=== PATIENT | female | born 1955 | race Caucasian/White ===

== ENCOUNTER 2016-12-25 23:07 | Emergency (ER) | payer OTHER ==
[~2016-12-25] VITALS: Ht 157.5 cm; Wt 90.7 kg
[~2016-12-25 23:07] MED LIST: BENZTROPINE MES1 MG PO; BUSPIRONE HCL10 MG PO; CEFTIN 250 MG250 MG PO; COUMADIN 5 MG TA5 M1 PO; ENOXAPARIN80 MG/0.1 SUBQ; HYDROXYZINE HCL25 M1 PO; HYDROXYZINE HCL25 M2 PO; IBUPROFEN 800800 MG PO; INVEGA3 MG PO; INVEGA6 MG PO; LAMICTAL100 MG PO; LATUDA20 MG PO; LEVOTHYROXIN0.137 M1 PO; NORCO 5-325 TA1 EACH PO; SEROQUEL PO; SERTRALINE HCL50 MG PO; TRAZODONE HCL50 MG PO; TYLENOL325 MG PO; WELLBUTRIN SR150 MG PO; WELLBUTRIN XL150 MG PO
[2016-12-26 00:27] LABS: HEMATOCRIT 37.3 % (37.0-47.0); HEMOGLOBIN 12.8 gm/dL (12.0-15.0); MCH 32.6 pg (26.0-34.0); MCHC 34.4 g/dL (28.0-37.0); MCV 94.6 fL (80.0-100.0); RBC 3.94 mil/uL (4.20-5.00); WBC 7.6 thou/uL (4.0-11.0)
[2016-12-26 00:35] LABS: URINE BILIRUBIN NEGATIVE (Negative); URINE BLOOD NEGATIVE (Negative); URINE COLOR YELLOW; URINE GLUCOSE-RANDOM* NEGATIVE (Negative); URINE KETONES NEGATIVE (Negative); URINE LEUKOCYTES-REFLEX NEGATIVE (Negative); URINE PROTEIN (DIPSTICK) NEGATIVE (Negative); URINE SPECIFIC GRAVITY <= 1.005 (1.003-1.035); URINE UROBILINOGEN 0.2 E.U./dl (0.2-1.0)
[2016-12-26 00:38] LABS: ANION GAP 11 mmol/L (7-16); BUN 17 mg/dL (7-18); CHLORIDE 102 mmol/L (98-107); CO2 26 mmol/L (21-32); CREATININE 0.8 mg/dL (0.6-1.0); GLUCOSE 88 mg/dL (74-106); POTASSIUM 3.3 mmol/L (3.5-5.1); SODIUM 139 mmol/L (136-145)
[2016-12-26] MEDS ORDERED: LEVOTHYROXIN0.112 M1 PO (00:40)
[2016-12-26] MEDS ORDERED: SEROQUEL 50 MG50 MG PO (00:41)
[2016-12-26 00:42] LABS: SALICYLATE 6.4 mg/dL (2.8-20.0)
[2016-12-26 00:42] LABS: AMP/METHAMP Negative (Negative); BARBITURATES Negative (Negative); BENZODIAZEPINES Negative (Negative); COCAINE Negative (Negative); METHADONE Negative (Negative); OPIATES Negative (Negative); PCP Negative (Negative); THC Negative (Negative)
[2016-12-26 00:44] LABS: ACETAMINOPHEN < 2 ug/mL (10-30)
[2016-12-26] MEDS ORDERED: HYDROXYZINE HCL25 M2 PO (00:44)
[2016-12-28 21:07] LABS: TRICYCLIC (TCA) CONFIRMATION Negative ng/mL (Cutoff=100)
== END 2016-12-26 03:18 ==
LOC: ER 23:07
PROVIDERS: Emergency Medicine
DX: R45.851 Suicidal ideations (principal); R94.6 Abnormal results of thyroid function studies; E03.9 Hypothyroidism, unspecified; F31.9 Bipolar disorder, unspecified; F17.210 Nicotine dependence, cigarettes, uncomplicated; F10.99 Alcohol use, unspecified with unspecified alcohol-induced disorder; Z98.890 Other specified postprocedural states

== ENCOUNTER 2017-01-16 19:43 | Emergency (ER) | payer OTHER | END 2017-01-16 23:56 | disposition home or self-care (01) | LOC: ER 19:43 | DX: R60.0 Localized edema (principal); F31.9 Bipolar disorder, unspecified; G89.29 Other chronic pain; M25.551 Pain in right hip; E87.6 Hypokalemia; R07.89 Other chest pain; E03.9 Hypothyroidism, unspecified; F17.210 Nicotine dependence, cigarettes, uncomplicated; F10.99 Alcohol use, unspecified with unspecified alcohol-induced disorder; Z98.890 Other specified postprocedural states; Z90.89 Acquired absence of other organs ==

== ENCOUNTER 2017-01-20 10:27 | Emergency (ER) | payer OTHER ==
[~2017-01-20] VITALS: Ht 157.5 cm; Wt 92.1 kg
--- NOTE | ~2017-01-20 | EKG ---
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
[~2017-01-20 10:27] MED LIST changes: +DEPAKOTE 250MG250 M1; +LEVOTHYROXIN0.112 M1 PO; +NAPROSYN500 MG PO; +SEROQUEL 50 MG50 MG PO; +TRAMADOL 50 MG50 MG PO
[2017-01-20 11:35] LABS: ABSOLUTE NEUTROPHILS 3.5 thou/uL (1.4-8.2); BASOPHILS 0.8 % (0.0-2.0); HEMATOCRIT 33.2 % (37.0-47.0); HEMOGLOBIN 11.5 gm/dL (12.0-15.0); LYMPHOCYTES 22.3 % (24.0-44.0); MANUAL DIFF NO; MCH 32.5 pg (26.0-34.0); MCHC 34.5 g/dL (28.0-37.0); MCV 94.1 fL (80.0-100.0); MONOCYTES 11.1 % (1.0-8.0); PLATELET COUNT 248 thou/uL (150-400); POLYS 52.8 % (36.0-66.0); RBC 3.53 mil/uL (4.20-5.00); RDW 13.1 % (10.5-14.5); WBC 6.5 thou/uL (4.0-11.0)
[2017-01-20 11:38] LABS: ANION GAP 9 mmol/L (7-16); BUN 14 mg/dL (7-18); CHLORIDE 106 mmol/L (98-107); CO2 26 mmol/L (21-32); CREATININE 0.7 mg/dL (0.6-1.0); GLUCOSE 99 mg/dL (74-106); POTASSIUM 3.6 mmol/L (3.5-5.1); SODIUM 141 mmol/L (136-145)
[2017-01-20 11:47] LABS: TROPONIN-I < 0.04 ng/mL (<0.04-0.07)
== END 2017-01-20 13:32 | disposition left against medical advice (07) ==
LOC: ER 10:27
PROVIDERS: Emergency Medicine
DX: I10 Essential (primary) hypertension (principal); R07.9 Chest pain, unspecified; R51 Headache; F31.9 Bipolar disorder, unspecified; F17.210 Nicotine dependence, cigarettes, uncomplicated; E03.9 Hypothyroidism, unspecified; Z98.890 Other specified postprocedural states; Z88.8 Allergy status to other drugs, medicaments and biological substances; F10.99 Alcohol use, unspecified with unspecified alcohol-induced disorder

== ENCOUNTER 2019-11-13 07:33 | Emergency (ER) | payer BC ==
[~2019-11-13] VITALS: Ht 157.5 cm; Wt 98.4 kg
[2019-11-13] MEDS ORDERED: TEGRETOL200 MG PO (07:40)
[2019-11-13] MEDS ORDERED: WELLBUTRIN SR150 MG PO (07:41)
[2019-11-13] MEDS ORDERED: LIPITOR40 MG PO (07:52)
[2019-11-13] MEDS ORDERED: EFFEXOR XR75 MG PO (07:52)
[2019-11-13 08:48] LABS: ABSOLUTE NEUTROPHILS 6.3 thou/uL (1.4-8.2); BASOPHILS 0.4 % (0.0-2.0); EOSINOPHILS 2.9 % (0.0-3.0); HEMATOCRIT 38.7 % (37.0-47.0); HEMOGLOBIN 13.1 gm/dL (12.0-15.0); LYMPHOCYTES 13.7 % (24.0-44.0); MCH 32.8 pg (26.0-34.0); MCV 96.4 fL (80.0-100.0); MONOCYTES 7.5 % (1.0-8.0); PLATELET COUNT 285 thou/uL (150-400); POLYS 75.5 % (36.0-66.0); RBC 4.01 mil/uL (4.20-5.00); RDW 14.1 % (10.5-14.5); WBC 8.3 thou/uL (4.0-11.0)
[2019-11-13 08:52] VITALS: BP 132/82
[2019-11-13 08:52] LABS: ANION GAP 7 mmol/L (7-16); BUN 11 mg/dL (7-18); CALCIUM 8.9 mg/dL (8.5-10.1); CHLORIDE 95 mmol/L (98-107); CO2 30 mmol/L (21-32); CREATININE 0.9 mg/dL (0.6-1.0); GLUCOSE 144 mg/dL (74-106); POTASSIUM 3.4 mmol/L (3.5-5.1); SODIUM 132 mmol/L (136-145)
[2019-11-13 09:00] LABS: TROPONIN-I <0.06 ng/mL (<0.06)
--- NOTE | 2019-11-14 07:18 | EKG ---
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
== END 2019-11-13 10:19 | disposition left against medical advice (07) ==
LOC: ER 07:33
PROVIDERS: Emergency Medicine
DX: S60.812A Abrasion of left wrist, initial encounter (principal); S60.811A Abrasion of right wrist, initial encounter; R07.9 Chest pain, unspecified; M79.672 Pain in left foot; M54.5 Low back pain; R42 Dizziness and giddiness; F31.9 Bipolar disorder, unspecified; E03.9 Hypothyroidism, unspecified; F17.210 Nicotine dependence, cigarettes, uncomplicated; Z98.890 Other specified postprocedural states; Z90.89 Acquired absence of other organs; Z79.899 Other long term (current) drug therapy; Y08.89XA Assault by other specified means, initial encounter; Y93.89 Activity, other specified; Y92.89 Other specified places as the place of occurrence of the external cause; Y99.8 Other external cause status